=== PATIENT | male | born 1975 | race African-American/Black ===

== ENCOUNTER 2024-06-02 23:14 | Inpatient (IN) | payer OTHER ==
[~2024-06-02] VITALS: Ht 188 cm; Wt 106.7 kg
[2024-06-03] MEDS ORDERED: CloNIDine HCL 0.2 MG TABLET PO ONE (00:45)
[2024-06-03] MEDS: HYDROCODONE/ACETAMINOPHEN 5-325 MG TABLET PO ONE (01:06)
[2024-06-03 01:07] LABS: BASOPHILS % (AUTO) 0.7 % (0.0-2.0); EOSINOPHILS % (AUTO) 6.5 % (1.0-6.0); HEMATOCRIT 41.7 % (41-53); HEMOGLOBIN 13.2 g/dL (13.5-17.5); LYMPHOCYTES # (AUTO) 1.4 K/uL (1.0-4.8); LYMPHOCYTES % (AUTO) 18.5 % (22.0-44.0); MEAN CORPUSCULAR HEMOGLOBIN 26.6 pg (26.0-34.0); MEAN CORPUSCULAR HGB CONC 31.7 G/dL (31.0-37.0); MEAN CORPUSCULAR VOLUME 84 fL (80-100); MONOCYTES # (AUTO) 0.5 K/uL (0.1-1.0); MONOCYTES % (AUTO) 6.2 % (2.0-9.0); NEUTROPHILS # (AUTO) 5.1 K/uL (1.8-7.7); NEUTROPHILS % (AUTO) 68.1 % (40.0-70.0); PLATELET COUNT (AUTO) 211 K/uL (150-450); RED BLOOD CELL COUNT(AUTO) 4.99 MIL/uL (4.50-5.90); RED CELL DISTRIBUTION WIDTH 16.5 % (11.5-14.5); WHITE BLOOD COUNT (AUTO) 7.5 K/uL (4.5-11.0)
[2024-06-03] MEDS: CloNIDine HCL 0.1 MG TABLET PO ONE (01:07)
[2024-06-03] MEDS: AmLODIPine BESYLATE 5 MG TABLET PO ONE (01:07)
[2024-06-03 01:18] LABS: ANION GAP 7 mmol/L (8-16); CALCIUM, TOTAL 8.8 mg/dL (8.8-10.5); CARBON DIOXIDE 27 mmol/L (22-29); CHLORIDE 108 mmol/L (98-107); CREATININE 0.98 mg/dL (0.60-1.30); GLOMERULAR FILTR. RATE CALC > 60 mL/min (>60); GLUCOSE,RANDOM 96 mg/dL (70-110); POTASSIUM 3.7 mmol/L (3.5-5.1); SODIUM SERUM 142 mmol/L (136-145); UREA NITROGEN, BLOOD 12 mg/dL (7-18)
[2024-06-03 01:27] LABS: TROPONIN I-HIGH SENSITIVITY 18 ng/L (<76)
[2024-06-03 01:33] LABS: B-TYPE NATRIURETIC PEPTIDE 46 pg/mL (0-100)
[2024-06-03 02:04] LABS: COVID AG,FIA SOURCE NASAL SWAB
[2024-06-03] MEDS: SODIUM CHLORIDE 0.9% 1,000 ML IV ONE (02:06)
[2024-06-03] MEDS ORDERED: ALBUTEROL SULFATE 2.5 MG/0.5 ML NEB SOLUTION NEB PRN (02:15)
[2024-06-03] MEDS ORDERED: ONDANSETRON HCL 4 MG/2 ML VIAL IVP PRN (02:15)
[2024-06-03] MEDS ORDERED: IPRATROPIUM BROMIDE 0.5 MG/2.5 ML NEB SOLUTION NEB PRN (02:15)
[2024-06-03 02:33] LABS: SARS-COV2 (COVID) ANTIGEN,FIA Negative (Negative)
[2024-06-03 02:34] LABS: LACTIC ACID 0.7 mmol/L (0.4-2.0)
[2024-06-03] MEDS: HydrALAZINE HCL 20 MG/ML VIAL IVP PRN (02:43)
[2024-06-03] MEDS: NITROGLYCERIN 2% (1 GM=INCH) OINTMENT PACKET TP SCH (02:43)
[2024-06-03] MEDS: HydrALAZINE HCL 20 MG/ML VIAL IVP ONE (02:49)
[2024-06-03 02:53] LABS: INFLUENZA TYPE A NEGATIVE FOR TYPE A (NEGATIVE); INFLUENZA TYPE B NEGATIVE FOR TYPE B (NEGATIVE)
[2024-06-03 03:06] LABS: TROPONIN I-HIGH SENSITIVITY 18 ng/L (<76)
[2024-06-03] MEDS: CARVEDILOL 3.125 MG TABLET PO SCH (04:06)
[2024-06-03] MEDS: ATORVASTATIN CALCIUM 40 MG TABLET PO ONE (04:06)
[2024-06-03] MEDS ORDERED: CefTRIAXone 1 GM/DEXTROSE 50 ML IV SCH (05:00)
[2024-06-03] MEDS ORDERED: HEPARIN SODIUM,PORCINE 5,000 UNITS/ML VIAL IVP PRN (05:00)
[2024-06-03 05:49] LABS: BASOPHILS % (AUTO) 1.1 % (0.0-2.0); EOSINOPHILS % (AUTO) 7.7 % (1.0-6.0); HEMATOCRIT 38.8 % (41-53); HEMOGLOBIN 12.3 g/dL (13.5-17.5); LYMPHOCYTES # (AUTO) 1.2 K/uL (1.0-4.8); LYMPHOCYTES % (AUTO) 17.8 % (22.0-44.0); MEAN CORPUSCULAR HEMOGLOBIN 26.5 pg (26.0-34.0); MEAN CORPUSCULAR HGB CONC 31.7 G/dL (31.0-37.0); MEAN CORPUSCULAR VOLUME 84 fL (80-100); MONOCYTES # (AUTO) 0.5 K/uL (0.1-1.0); MONOCYTES % (AUTO) 7.2 % (2.0-9.0); NEUTROPHILS # (AUTO) 4.6 K/uL (1.8-7.7); NEUTROPHILS % (AUTO) 66.2 % (40.0-70.0); PLATELET COUNT (AUTO) 207 K/uL (150-450); RED BLOOD CELL COUNT(AUTO) 4.65 MIL/uL (4.50-5.90); RED CELL DISTRIBUTION WIDTH 16.5 % (11.5-14.5)
[2024-06-03 06:02] LABS: PROTHROMBIN TIME 11.1 SEC (9.4-11.6)
[2024-06-03] MEDS: DOXYCYCLINE HYCLATE 100 MG TABLET PO SCH (06:14)
[2024-06-03] MEDS: HEPARIN SODIUM,PORCINE 5,000 UNITS/ML VIAL IVP ONE (06:15)
[2024-06-03] MEDS: HEPARIN SODIUM 25000 UNITS/D5W 250 ML IV PRN (06:18)
[2024-06-03 06:50] LABS: APPEARANCE,URINE CLEAR (CLEAR); BILIRUBIN,URINE NEGATIVE (NEGATIVE); COLOR,URINE LIGHT YELLOW (YELLOW); GLUCOSE, URINE (UA) NEGATIVE (NEGATIVE); KETONES,URINE NEGATIVE (NEGATIVE); LEUKOCYTE ESTERASE ,URINE NEGATIVE (NEGATIVE); NITRATE,URINE NEGATIVE (NEGATIVE); OCCULT BLOOD,URINE NEGATIVE (NEGATIVE); PH,URINE 6.5 (5.0-8.0); PROTEIN,URINE NEGATIVE (NEGATIVE); SPECIFIC GRAVITIY, URINE 1.021 (1.003-1.030); UROBILINOGEN,URINE <=1.0 mg/dL (<=1.0)
[2024-06-03] MEDS: DOCUSATE SODIUM 100 MG CAPSULE PO SCH (07:49)
[2024-06-03] MEDS: ASPIRIN 81 MG CHEWABLE TABLET PO SCH (07:49)
[2024-06-03] MEDS ORDERED: HEPARIN SODIUM,PORCINE 5,000 UNITS/ML VIAL SQ SCH (08:00)
[2024-06-03] MEDS: *CLINICAL-LEVOFLOXACIN IVPB DOSING CLINICAL ONE (08:13)
[2024-06-03] MEDS: MORPHINE SULFATE 2 MG/ML SYRINGE IVP PRN (08:30)
[2024-06-03] MEDS: AmLODIPine BESYLATE 10 MG TABLET PO SCH (09:00)
[2024-06-03] MEDS: CARVEDILOL 12.5 MG TABLET PO SCH (09:00)
[2024-06-03 10:46] VITALS: BP 156/99; PULSE 75; RESP 18; TEMP 98.8; O2SAT 97
[2024-06-03] MEDS ORDERED: SODIUM CHLORIDE 0.9% 250 ML IV ONE (11:48)
[2024-06-03] MEDS: ACETAMINOPHEN 325 MG TABLET PO PRN (11:52)
[2024-06-03] MEDS: LEVOFLOXACIN 750 MG/D5% WATER 150 ML IV SCH (11:52)
[2024-06-03] MEDS ORDERED: HALOPERIDOL LACTATE 5 MG/ML VIAL IVP PRN (17:00)
[2024-06-03 17:38] VITALS: BP 163/97; PULSE 77; RESP 19; TEMP 98.7; O2SAT 96
[2024-06-03 20:07] VITALS: BP 154/87; PULSE 89; RESP 16; TEMP 98.5; O2SAT 96
[2024-06-04] VITALS (7 sets, daily range): BP systolic 138–161; BP diastolic 76–96; PULSE 72–80; RESP 18–20; TEMP 98.2–99.3; O2SAT 95–98
[2024-06-04 06:13] LABS: BASOPHILS % (AUTO) 0.5 % (0.0-2.0); EOSINOPHILS % (AUTO) 3.9 % (1.0-6.0); HEMATOCRIT 39.7 % (41-53); HEMOGLOBIN 12.9 g/dL (13.5-17.5); LYMPHOCYTES # (AUTO) 1.2 K/uL (1.0-4.8); LYMPHOCYTES % (AUTO) 13.9 % (22.0-44.0); MEAN CORPUSCULAR HEMOGLOBIN 26.9 pg (26.0-34.0); MEAN CORPUSCULAR HGB CONC 32.4 G/dL (31.0-37.0); MEAN CORPUSCULAR VOLUME 83 fL (80-100); MONOCYTES # (AUTO) 0.7 K/uL (0.1-1.0); MONOCYTES % (AUTO) 7.9 % (2.0-9.0); NEUTROPHILS # (AUTO) 6.4 K/uL (1.8-7.7); NEUTROPHILS % (AUTO) 73.8 % (40.0-70.0); PLATELET COUNT (AUTO) 202 K/uL (150-450); RED BLOOD CELL COUNT(AUTO) 4.79 MIL/uL (4.50-5.90); RED CELL DISTRIBUTION WIDTH 16.3 % (11.5-14.5); WHITE BLOOD COUNT (AUTO) 8.7 K/uL (4.5-11.0)
[2024-06-04 06:28] LABS: ANION GAP 9 mmol/L (8-16); CALCIUM, TOTAL 8.7 mg/dL (8.8-10.5); CARBON DIOXIDE 25 mmol/L (22-29); CHLORIDE 107 mmol/L (98-107); CREATININE 0.83 mg/dL (0.60-1.30); GLOMERULAR FILTR. RATE CALC > 60 mL/min (>60); GLUCOSE,RANDOM 100 mg/dL (70-110); POTASSIUM 3.4 mmol/L (3.5-5.1); SODIUM SERUM 141 mmol/L (136-145); UREA NITROGEN, BLOOD 8 mg/dL (7-18)
[2024-06-04] MEDS ORDERED: MAGNESIUM SULFATE 4 GM/WATER 100 ML IV PRN (07:30)
[2024-06-04] MEDS ORDERED: POTASSIUM CHL 10 MEQ/WATER 50 ML IV PRN (07:30)
[2024-06-04] MEDS ORDERED: MAGNESIUM SULFATE 2 GM/WATER 50 ML IV PRN (07:30)
[2024-06-04] MEDS: CARVEDILOL 25 MG TABLET PO SCH (08:40)
[2024-06-04] MEDS: POTASSIUM CHLORIDE 20 MEQ ER TABLET PO PRN (08:41)
[2024-06-04] MEDS: MAGNESIUM OXIDE 400 MG TABLET PO PRN (08:41)
[2024-06-04 09:37] LABS: ALBUMIN 2.8 g/dL (3.4-5.0)
[2024-06-04 10:06] LABS: HIV 1-2 SCREEN 4TH GEN W/RFLX Non Reactive (Non Reactive)
[2024-06-04 10:11] LABS: TROPONIN I-HIGH SENSITIVITY 14 ng/L (<76)
[2024-06-04] MEDS: *CLINICAL-LEVOFLOXACIN IVPB DOSING CLINICAL ONE (11:40)
[2024-06-04] MEDS: ATORVASTATIN CALCIUM 40 MG TABLET PO SCH (11:56)
[2024-06-04] MEDS: LOSARTAN POTASSIUM 25 MG TABLET PO SCH (13:29)
[2024-06-05 04:20] VITALS: BP 136/82; PULSE 72; RESP 18; TEMP 98.9; O2SAT 96
[2024-06-05 06:46] LABS: ANION GAP 8 mmol/L (8-16); BASOPHILS % (AUTO) 0.4 % (0.0-2.0); CALCIUM, TOTAL 8.7 mg/dL (8.8-10.5); CARBON DIOXIDE 26 mmol/L (22-29); CHLORIDE 108 mmol/L (98-107); EOSINOPHILS % (AUTO) 2.3 % (1.0-6.0); GLOMERULAR FILTR. RATE CALC > 60 mL/min (>60); GLUCOSE,RANDOM 101 mg/dL (70-110); HEMATOCRIT 40.2 % (41-53); HEMOGLOBIN 13.1 g/dL (13.5-17.5); LYMPHOCYTES # (AUTO) 1.2 K/uL (1.0-4.8); LYMPHOCYTES % (AUTO) 12.8 % (22.0-44.0); MEAN CORPUSCULAR HGB CONC 32.6 G/dL (31.0-37.0); MEAN CORPUSCULAR VOLUME 83 fL (80-100); MONOCYTES # (AUTO) 0.6 K/uL (0.1-1.0); MONOCYTES % (AUTO) 7.1 % (2.0-9.0); NEUTROPHILS % (AUTO) 77.4 % (40.0-70.0); PLATELET COUNT (AUTO) 190 K/uL (150-450); RED BLOOD CELL COUNT(AUTO) 4.85 MIL/uL (4.50-5.90); RED CELL DISTRIBUTION WIDTH 16.5 % (11.5-14.5); SODIUM SERUM 142 mmol/L (136-145); UREA NITROGEN, BLOOD 10 mg/dL (7-18)
[2024-06-05] MEDS: HEPARIN SODIUM,PORCINE 5,000 UNITS/ML VIAL IVP PRN (07:12)
[2024-06-05 07:49] VITALS: BP 137/93; PULSE 66; RESP 18; TEMP 98.5; O2SAT 95
[2024-06-05 11:34] VITALS: BP 125/78; PULSE 73; RESP 18; TEMP 98.1; O2SAT 95
[2024-06-05 11:43] LABS: SPECIMENTYPE,BODY FLUID THORAV
[2024-06-05 13:28] LABS: APPEARANCE,SPUN,BODY FLUID CLEAR (CLEAR); APPEARANCE,UNSPUN,BODY FLUID CLOUDY (CLEAR); BASOPHILS,BODY FLUID 2 %; EOSINOPHILS,BF (ANAL) 0 %; LYMPHOCYTES,BODY FLUID 56 %; MONOCYTES,BODY FLUID 4 %; NEUTROPHILS,BODY FLUID 37 %; TOTAL VOLUME,BODY FLUID 220 mL; WBC, BODY FLUID 349 /cu. mm.
[2024-06-05 13:34] LABS: COLOR,BODY FLUID YELLOW (LT YELLOW)
[2024-06-05 15:30] VITALS: BP 123/76; PULSE 70; RESP 18; TEMP 98.1; O2SAT 95
[2024-06-05] MEDS ORDERED: NITROGLYCERIN 0.4 MG SUBLINGUAL TABLET #25 SL PRN (16:30)
[2024-06-05 20:15] VITALS: BP 146/85; PULSE 72; RESP 18; TEMP 98.1; O2SAT 98
[2024-06-05] MEDS: APIXABAN 5 MG TABLET PO SCH (22:01)
[2024-06-06] VITALS: BP 135/81; PULSE 82; RESP 17; TEMP 99; O2SAT 98
[2024-06-06 04:00] VITALS: BP 138/71; PULSE 68; RESP 16; TEMP 98.7; O2SAT 98
[2024-06-06 06:06] LABS: QUANTIFERON+, Nil Value 0.02 IU/mL; QUANTIFERON+,Mitogen Value 5.75 IU/mL; QUANTIFERON+,TB1 Antigen Value 0.02 IU/mL; QUANTIFERON+,TB2 Antigen Value 0.01 IU/mL; QUANTIFERON, TB GOLD PLUS Negative (Negative)
[2024-06-06 06:40] LABS: BASOPHILS % (AUTO) 0.3 % (0.0-2.0); EOSINOPHILS % (AUTO) 2.3 % (1.0-6.0); HEMATOCRIT 39.2 % (41-53); HEMOGLOBIN 12.6 g/dL (13.5-17.5); LYMPHOCYTES # (AUTO) 1.2 K/uL (1.0-4.8); LYMPHOCYTES % (AUTO) 14.5 % (22.0-44.0); MEAN CORPUSCULAR HEMOGLOBIN 26.8 pg (26.0-34.0); MEAN CORPUSCULAR HGB CONC 32.2 G/dL (31.0-37.0); MEAN CORPUSCULAR VOLUME 83 fL (80-100); MONOCYTES # (AUTO) 0.7 K/uL (0.1-1.0); MONOCYTES % (AUTO) 8.4 % (2.0-9.0); NEUTROPHILS # (AUTO) 5.9 K/uL (1.8-7.7); NEUTROPHILS % (AUTO) 74.5 % (40.0-70.0); PLATELET COUNT (AUTO) 193 K/uL (150-450); RED BLOOD CELL COUNT(AUTO) 4.71 MIL/uL (4.50-5.90); RED CELL DISTRIBUTION WIDTH 16.1 % (11.5-14.5)
[2024-06-06 07:08] LABS: ANION GAP 8 mmol/L (8-16); CALCIUM, TOTAL 8.7 mg/dL (8.8-10.5); CARBON DIOXIDE 26 mmol/L (22-29); CHLORIDE 106 mmol/L (98-107); CREATININE 0.92 mg/dL (0.60-1.30); GLOMERULAR FILTR. RATE CALC > 60 mL/min (>60); GLUCOSE,RANDOM 91 mg/dL (70-110); POTASSIUM 3.6 mmol/L (3.5-5.1); SODIUM SERUM 140 mmol/L (136-145); UREA NITROGEN, BLOOD 14 mg/dL (7-18)
[2024-06-06 08:46] VITALS: BP 136/77; PULSE 62; RESP 18; TEMP 98.2; O2SAT 97
[2024-06-06 09:08] LABS: OTHER CELLS,BODY FLUID MESOTHELIALS
[2024-06-06 11:46] VITALS: BP 132/70; PULSE 68; RESP 19; TEMP 98; O2SAT 98
[2024-06-06 12:07] LABS: TOTAL PROTEIN,BODY FLUID,REF 4.5 g/dL; URIC ACID, BODY FLUID,REF 4.1 mg/dL
[2024-06-06 15:00] VITALS: BP 108/62; PULSE 69; RESP 18; TEMP 98; O2SAT 98
[2024-06-06] MEDS ORDERED: APIX5TAB PO (15:24)
[2024-06-06] MEDS ORDERED: ASPI81TA87 PO (15:25)
[2024-06-06] MEDS ORDERED: ATOR-2 PO (15:25)
[2024-06-06] MEDS ORDERED: AMLO10TA55 PO (15:25)
[2024-06-06] MEDS ORDERED: LEVO750T68 PO (15:26)
[2024-06-06] MEDS ORDERED: CARV25TA32 PO (15:26)
[2024-06-06] MEDS ORDERED: LOSA-381 PO (15:27)
[2024-06-06] MEDS ORDERED: ACET-66 PO (15:28)
== END 2024-06-06 19:40 | DRG 304 ==
LOC: EMS 23:14 → EDH 06-03 02:15 → UNDOADMIN 06-03 03:21 → EDH 06-03 03:21 → 5S 06-03 10:32 → EDH 06-03 10:32
PROVIDERS: ADMIT Internal Medicine; ATTEND Internal Medicine
PROC: 0W9B3ZZ Drainage of Left Pleural Cavity, Percutaneous Approach (ICD-10-PCS; principal; 2024-06-05)
DX: I16.1 Hypertensive emergency (principal); J18.9 Pneumonia, unspecified organism; J90 Pleural effusion, not elsewhere classified; E78.5 Hyperlipidemia, unspecified; I34.1 Nonrheumatic mitral (valve) prolapse; Z20.822 Contact with and (suspected) exposure to COVID-19; Z86.711 Personal history of pulmonary embolism; Z88.0 Allergy status to penicillin; Z86.718 Personal history of other venous thrombosis and embolism; Z79.899 Other long term (current) drug therapy; Z95.2 Presence of prosthetic heart valve; Z91.012 Allergy to eggs
CPT/HCPCS: 32555; 71045; 71250; 76942; 80048; 81003; 82040; 82465; 82945; 83605; 83615; 83735; 83880; 83986; 84132; 84157; 84484; 84560; 85025; 85610; 85730; 86480; 87040; 87075; 87205; 87389; 87804; 89051; 93005; 93306; 93970; 99285; J0360; J1644; J1956; J2270; J7050; 36415-L1; 36415-TC; 87070